=== PATIENT | female | born 1955 ===

== ENCOUNTER 2017-12-04 10:52 | Emergency (ER) | payer BC ==
[2017-12-04 10:53] VITALS: BMI 24.9
[2017-12-04 10:57] VITALS: TEMP 98
[2017-12-04] MEDS ORDERED: Sodium Chloride 0.9% 1,000 ML IV STA (11:48)
--- NOTE | 2017-12-04 12:02 | ED PDOC ---
HPI: General Adult Time Seen by Provider: 12/04/17 11:09 Chief Complaint (Nursing): Dizziness/Lightheaded Chief Complaint (Provider): Dizziness History Per: Patient History/Exam Limitations: no limitations Onset/Duration Of Symptoms: Days (2) Current Symptoms Are (Timing): Still Present Additional Complaint(s): Pt. light-headed and mild cough. Also general weakness and bodyaches. No chest pain, dyspnea. Nausea, no vomit. Mild headache/congestion that is not worst in her life. No neck pain, numbness, tingles. No back pain, abd pain. For 2 weeks saw her doctor several times and dx with flu/uri. Tried doxy briefly and then switched to zpak. Also finished tamiflu and steroids. No leg pain. Past Medical History Reviewed: Nursing Documentation, Vital Signs Vital Signs: Last Vital Signs Temp 98 F 12/04/17 10:56 Pulse 89 12/04/17 10:56 Resp 16 12/04/17 11:18 BP 171/97 H 12/04/17 10:56 Pulse Ox 97 12/04/17 12:26 - Medical History PMH: Asthma, Gastrointestinal Ulcer, HTN, Hypercholesterolemia Denies: Chronic Kidney Disease - Surgical History Surgical History: Cholecystectomy - Family History Family History: States: Unknown Family Hx - Living Arrangements Living Arrangements: With Family - Social History Current smoker - smoking cessation education provided: No Alcohol: None Drugs: Denies - Immunization History Hx Tetanus Toxoid Vaccination: No Hx Influenza Vaccination: No Hx Pneumococcal Vaccination: No - Home Medications Home Medications: Ambulatory Orders Medication Instructions Recorded Kitty 04/14/14 Avelox 04/14/14 Codeine Phosphate/Promethazi 5 ml PO Q6 PRN #0 syr 04/14/14 [Phenergan W/Codeine 10 mg/5 ml-6.25 mg/5 ml 1] Levalbuterol Tartrate [Xopenex Hfa] 0.045 mg IH Q6 PRN #0 ml 04/14/14 Lipitor 04/14/14 Lotrel 10 mg-20 mg 04/14/14 Prednisone 04/14/14 Prilosec 04/14/14 Azithromycin [Zithromax] 250 mg PO DAILY #6 tab 03/14/16 - Allergies Allergies/Adverse Reactions: Allergies Allergy/AdvReac Type Severity Reaction Status Date / Time amoxicillin Allergy URTICARIA Verified 03/14/16 21:17 chocolate flavor Allergy URTICARIA Verified 03/14/16 21:17 clavulanic acid Allergy ITCHING Verified 12/04/17 11:11 [From Augmentin] Review of Systems ROS Statement: Except As Marked, All Systems Reviewed And Found Negative Constitutional: Positive for: Weakness Respiratory: Positive for: Cough Gastrointestinal: Positive for: Nausea Musculoskeletal: Negative for: Neck Pain Skin: Negative for: Rash Neurological: Positive for: Weakness, Dizziness Physical Exam - Reviewed Nursing Documentation Reviewed: Yes Vital Signs Reviewed: Yes - Physical Exam Appears: Positive for: Non-toxic, No Acute Distress Head Exam: Positive for: ATRAUMATIC, NORMAL INSPECTION, NORMOCEPHALIC Skin: Positive for: Normal Color, Warm, DRY Eye Exam: Positive for: EOMI, Normal appearance, PERRL ENT: Positive for: Normal ENT Inspection Neck: Positive for: Normal, Painless ROM, Supple Cardiovascular/Chest: Positive for: Regular Rate, Rhythm. Negative for: Edema Respiratory: Positive for: CNT, Normal Breath Sounds Gastrointestinal/Abdominal: Positive for: Normal Exam, Bowel Sounds, Soft. Negative for: Tenderness Back: Positive for: Normal Inspection. Negative for: L CVA Tenderness, R CVA Tenderness Extremity: Positive for: Normal ROM. 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 Negative for: Motor/Sensory Deficits, Aphasia, Facial Droop - Laboratory Results Result Diagrams: 12/04/17 12:10 12/04/17 12:10 - ECG ECG: Positive for: Interpreted By Me, Viewed By [facility] ECG Rhythm: Positive for: Normal QRS, Normal ST Segment, Sinus Rhythm O2 Sat by Pulse Oximetry: 97 Pulse Ox Interpretation: Normal - Radiology X-Ray: Read By Radiologist X-Ray Interpretation: No Acute Disease - CT Scan/US ct Other Rad Studies (CT/US): Read By Radiologist, Radiology Report Reviewed Other Rad Interpretation: no acute - Progress ED Course And Treament: 1419: Stable. AAOx3. Pain free. No dizziness. Ambulated with no issues. Tolerated PO. Fu with pcp. Disposition - Clinical Impression Clinical Impression: Dizziness, URI (upper respiratory infection) - Patient ED Disposition Is Patient to be Admitted: No Counseled Patient/Family Regarding: Studies Performed, Diagnosis, Need For Followup - Disposition Referrals: [facility] [Outside] - 12/05/17 Disposition: Routine/Home Disposition Time: 14:20 Condition: STABLE Additional Instructions: Return if not better in 3 days. Instructions: Dizziness (ED), Upper Respiratory Infection (ED) Forms: [facility] (Icelandic)
[2017-12-04 12:29] LABS: BASO # 0.1 K/uL (0.0-0.2); BASO % 0.6 % (0.0-2.0); EOS # 0.3 K/uL (0.0-0.7); EOS % 3.1 % (0.0-4.0); HEMOGLOBIN 15.1 g/dL (12.0-16.0); LYMPH # 1.8 K/uL (1.0-4.3); LYMPH % 21.6 % (20.0-40.0); MEAN CORPUSCULAR HEMOGLOBIN 27.6 pg (27.0-31.0); MEAN CORPUSCULAR HGB CONC 33.2 g/dL (33.0-37.0); MEAN PLATELET VOLUME 9.3 fl (7.2-11.7); MONO # 0.5 K/uL (0.0-0.8); MONO % 6.3 % (0.0-10.0); NEUT # 5.8 K/uL (1.8-7.0); NEUT % 68.4 % (50.0-75.0); NRBC % 0.1 % (0.0-0.0); RBC 5.46 Mil/uL (3.80-5.20); RED CELL DISTRIBUTION WIDTH 14.4 % (11.5-14.5); WHITE BLOOD COUNT 8.5 K/uL (4.8-10.8)
--- NOTE | 2017-12-04 12:45 | CT ---
PROCEDURE: CT HEAD WITHOUT CONTRAST. HISTORY: headache COMPARISON: None available. TECHNIQUE: Axial computed tomography images were obtained through the head/brain without intravenous contrast. Radiation dose: Total exam DLP = 841.87 mGy-cm. This CT exam was performed using one or more of the following dose reduction techniques: Automated exposure control, adjustment of the mA and/or kV according to patient size, and/or use of iterative reconstruction technique. FINDINGS: HEMORRHAGE: No acute parenchymal, subarachnoid or extra-axial hemorrhage. Hemorrhage. BRAIN: No mass effect or edema. No atrophy or chronic microvascular ischemic changes. Minor vascular calcifications both carotid siphons VENTRICLES: Unremarkable. No hydrocephalus. CALVARIUM: No acute calvarial fractures PARANASAL SINUSES: Unremarkable as visualized. No significant inflammatory changes. MASTOID AIR CELLS: Unremarkable as visualized. No inflammatory changes. OTHER FINDINGS: None. IMPRESSION: No acute intracranial hemorrhage.
--- NOTE | 2017-12-04 13:15 | RAD ---
HISTORY: dyspnea COMPARISON: Comparison chest 03/14/2016 FINDINGS: LUNGS: Hyperinflation; rule out underlying emphysema and or COPD. Mild biapical pleural thickening and apparent parenchymal scarring changes in both lung apices. No acute consolidation. PLEURA: No significant pleural effusion identified, no pneumothorax apparent. CARDIOVASCULAR: Normal. OSSEOUS STRUCTURES: No significant abnormalities. VISUALIZED UPPER ABDOMEN: Normal. OTHER FINDINGS: None. IMPRESSION: Hyperinflation; rule out underlying emphysema and or COPD. Mild biapical pleural thickening and apparent parenchymal scarring changes in both lung apices. No acute consolidation.
[2017-12-04 13:51] LABS: ALB/GLOB RATIO 1.2 (1.0-2.1); ALBUMIN 4.3 g/dL (3.5-5.0); ALT/SGPT 66 U/L (9-52); AST/SGOT 36 U/L (14-36); BLOOD UREA NITROGEN 9 mg/dl (7-17); CALCIUM 9.6 mg/dL (8.4-10.2); GFR AFRICAN-AMERICAN > 60; GFR NON-AFRICAN AMERICAN > 60
[2017-12-04 14:48] VITALS: BP 150/84; PULSE 79; RESP 18; O2SAT 98
--- NOTE | 2017-12-05 12:51 | CARD ---
APPROVED REPORT EKG Measurement Heart [id number] <Conclusion> Normal sinus rhythm Normal ECG
== END 2017-12-04 14:48 | disposition home or self-care (01) ==
LOC: H.ER 10:52
DX: J06.9 Acute upper respiratory infection, unspecified (principal); R42 Dizziness and giddiness; I10 Essential (primary) hypertension; J45.909 Unspecified asthma, uncomplicated; Z88.0 Allergy status to penicillin
CPT/HCPCS: 70450; 71045; 80053; 82948; 84484; 85025; 93005; 96365; 99284; J2765; J7040

== ENCOUNTER 2019-03-12 11:02 | Emergency (ER) | payer BC ==
[2019-03-12 11:05] VITALS: BMI 24.2
[2019-03-12] MEDS ORDERED: Sodium Chloride 0.9% 1,000 ML IV STA (11:32)
--- NOTE | 2019-03-12 11:37 | ED PDOC ---
HPI: General Adult Time Seen by Provider: 03/12/19 11:35 Chief Complaint (Nursing): Dizziness/Lightheaded Chief Complaint (Provider): dizziness History Per: Patient (64 y/o female h/o HTN/Asthma noted dizzy today described as near syncope. Denies any cp/sob/headache. Notes she has been experiencing cough/uri/headache last week and was prescribed initially bactrim. Noted to have vomiting/white spots on tongue and medication was d/c with start of prednisone/zithromax instead. Patient notes use of inhaler this week.) Past Medical History Reviewed: Historical Data, Nursing Documentation, Vital Signs Vital Signs: Last Vital Signs Temp 97.9 F 03/12/19 11:05 Pulse 81 03/12/19 11:05 Resp 15 03/12/19 11:05 BP 176/97 H 03/12/19 11:05 Pulse Ox 96 03/12/19 11:05 Primary Care Provider: Shaik Lyon - Medical History PMH: Asthma, Gastrointestinal Ulcer, HTN, Hypercholesterolemia Denies: Chronic Kidney Disease - Surgical History Surgical History: Cholecystectomy - Family History Family History: States: Unknown Family Hx - Immunization History Hx Tetanus Toxoid Vaccination: No Hx Influenza Vaccination: No Hx Pneumococcal Vaccination: No - Home Medications Home Medications: Ambulatory Orders Medication Instructions Recorded Kitty 04/14/14 Avelox 04/14/14 Codeine Phosphate/Promethazi 5 ml PO Q6 PRN #0 syr 04/14/14 [Phenergan W/Codeine 10 mg/5 ml-6.25 mg/5 ml 1] Levalbuterol Tartrate [Xopenex Hfa] 0.045 mg IH Q6 PRN #0 ml 04/14/14 Lipitor 04/14/14 Lotrel 10 mg-20 mg 04/14/14 Prednisone 04/14/14 Prilosec 04/14/14 Azithromycin [Zithromax] 250 mg PO DAILY #6 tab 03/14/16 Meclizine [Antivert] 1 - 2 tab PO Q6 PRN #24 tab 03/12/19 - Allergies Allergies/Adverse Reactions: Allergies Allergy/AdvReac Type Severity Reaction Status Date / Time amoxicillin Allergy URTICARIA Verified 03/12/19 11:18 chocolate flavor Allergy URTICARIA Verified 03/12/19 11:18 clavulanic acid Allergy ITCHING Verified 03/12/19 11:18 [From Augmentin] sulfamethoxazole Allergy ITCHING Verified 03/12/19 11:24 [From Bactrim] trimethoprim [From Bactrim] Allergy ITCHING Verified 03/12/19 11:24 Review of Systems ROS Statement: Except As Marked, All Systems Reviewed And Found Negative Physical Exam - Reviewed Nursing Documentation Reviewed: Yes Vital Signs Reviewed: Yes - Physical Exam Appears: Positive for: Well, Non-toxic, No Acute Distress Head Exam: Positive for: ATRAUMATIC, NORMAL INSPECTION, NORMOCEPHALIC Skin: Positive for: Normal Color, Warm, DRY Eye Exam: Positive for: EOMI, Normal appearance, PERRL ENT: Positive for: Normal ENT Inspection Neck: Positive for: Normal, Painless ROM Cardiovascular/Chest: Positive for: Regular Rate, Rhythm Respiratory: Positive for: CNT, Normal Breath Sounds Gastrointestinal/Abdominal: Positive for: Normal Exam, Soft Back: Positive for: Normal Inspection Extremity: Positive for: Normal ROM Neurological/Psych: Positive for: Awake, Alert, Normal Tone - Laboratory Results Result Diagrams: 03/12/19 11:32 03/12/19 11:32 - ECG ECG Rhythm: Positive for: Sinus Rhythm (NSR 73 bpm; no ectopy no acute changes) O2 Sat by Pulse Oximetry: 96 - Progress ED Course And Treament: rapid strep neg mono neg Disposition - Clinical Impression Clinical Impression: Dizzy spells, Pharyngitis - Patient ED Disposition Is Patient to be Admitted: No - Disposition Referrals: Boston Rich MD [Staff Provider] - Disposition Time: 14:33 Condition: FAIR Additional Instructions: FINISH YOUR ZITHROMAX F/U WITH PMD TOMORROW. SCHEDULE ENT APPOINTMENT. Prescriptions: Meclizine [Antivert] 1 - 2 tab PO Q6 PRN #24 tab PRN Reason: Dizziness Instructions: Vertigo (a Type of Dizziness), Viral Pharyngitis (DC)
[2019-03-12 12:07] LABS: BASO % 0.7 % (0.0-2.0); EOS # 0.2 K/uL (0.0-0.7); EOS % 2.1 % (0.0-4.0); MEAN CELL VOLUME 85.1 fl (81.0-99.0); MEAN CORPUSCULAR HEMOGLOBIN 28.2 pg (27.0-31.0); MEAN CORPUSCULAR HGB CONC 33.1 g/dL (33.0-37.0); MEAN PLATELET VOLUME 9.4 fl (7.2-11.7); MONO # 0.6 K/uL (0.0-0.8); MONO % 8.2 % (0.0-10.0); NEUT # 4.3 K/uL (1.8-7.0); NRBC % 0.2 % (0.0-0.0); RBC 5.31 Mil/uL (3.80-5.20); RED CELL DISTRIBUTION WIDTH 13.9 % (11.5-14.5); WHITE BLOOD COUNT 7.1 K/uL (4.8-10.8)
[2019-03-12 12:20] LABS: ALB/GLOB RATIO 1.3 (1.0-2.1); ALBUMIN 4.4 g/dL (3.5-5.0); BLOOD UREA NITROGEN 11 mg/dl (7-17); CALCIUM 9.6 mg/dL (8.4-10.2); GFR NON-AFRICAN AMERICAN > 60
[2019-03-12 12:46] LABS: ALT/SGPT 57 U/L (9-52); AST/SGOT 46 U/L (14-36)
--- NOTE | 2019-03-12 13:06 | CT ---
Date of service: 03/12/2019 PROCEDURE: CT HEAD WITHOUT CONTRAST. HISTORY: dizziness COMPARISON: Noncontrast head CT 11/26/2017. TECHNIQUE: Axial computed tomography images were obtained through the head/brain without intravenous contrast. Radiation dose: Total exam DLP = 775.36 mGy-cm. This CT exam was performed using one or more of the following dose reduction techniques: Automated exposure control, adjustment of the mA and/or kV according to patient size, and/or use of iterative reconstruction technique. FINDINGS: HEMORRHAGE: No intracranial hemorrhage. BRAIN: Normal farnsworth-white matter differentiation and density are appreciated throughout the cerebrum and cerebellum with the brainstem appearing unremarkable as well. There is no mass effect. There is no suspicious extra-axial fluid collection and the midline brain anatomy appears diffusely unremarkable. VENTRICLES: Unremarkable. No hydrocephalus. CALVARIUM: Unremarkable. PARANASAL SINUSES: Unremarkable as visualized. No significant inflammatory changes. MASTOID AIR CELLS: Unremarkable as visualized. No inflammatory changes. OTHER FINDINGS: None. IMPRESSION: Stable unenhanced head CT as compared prior head CT 12/04/2017.
--- NOTE | 2019-03-12 14:17 | RAD ---
Date of service: 03/12/2019 HISTORY: sob COMPARISON: 12/04/2017 TECHNIQUE: 1 view obtained. FINDINGS: LUNGS: No active pulmonary disease. PLEURA: No significant pleural effusion identified, no pneumothorax apparent. CARDIOVASCULAR: Aortic calcification Normal cardiac size. No pulmonary vascular congestion. OSSEOUS STRUCTURES: No significant abnormalities. VISUALIZED UPPER ABDOMEN: Normal. OTHER FINDINGS: None. IMPRESSION: No active disease.
[2019-03-12 15:05] VITALS: BP 133/80; PULSE 97; RESP 18; TEMP 98.4
--- NOTE | 2019-03-12 19:22 | CARD ---
APPROVED REPORT Date of service: 03/12/2019 EKG Measurement Heart [id number] <Conclusion> Normal sinus rhythm Normal ECG
[2019-03-14 23:24] VITALS: O2SAT 96
== END 2019-03-12 15:06 | disposition home or self-care (01) ==
LOC: H.ER 11:02
DX: R42 Dizziness and giddiness (principal); J02.9 Acute pharyngitis, unspecified; I10 Essential (primary) hypertension; J45.909 Unspecified asthma, uncomplicated; Z79.899 Other long term (current) drug therapy; Z88.0 Allergy status to penicillin; Z88.1 Allergy status to other antibiotic agents; Z88.2 Allergy status to sulfonamides; E78.00 Pure hypercholesterolemia, unspecified
CPT/HCPCS: 70450; 71045; 80053; 82948; 83735; 84443; 84484; 85025; 86308; 87070; 87430; 93005; 96361; 96374; 99285; J2765; J7030